=== PATIENT | female | born 1985 | race Caucasian/White ===

== ENCOUNTER 2023-08-02 16:46 | Emergency (ER) | payer MEDICAID ==
[~2023-08-02] VITALS: Ht 162.6 cm; Wt 65.3 kg
[2023-08-02 17:30] VITALS: BP_SYST 122; PULSE 77; RESP 18; TEMP 98.1; O2SAT 96
[2023-08-02] MEDS ORDERED: IBUP-1969 PO (19:19)
[2023-08-02] MEDS ORDERED: SOM350 PO (19:19)
== END 2023-08-02 19:34 | disposition home or self-care (01) ==
LOC: SED 16:46
DX: S16.1XXA Strain of muscle, fascia and tendon at neck level, initial encounter (principal); S39.012A Strain of muscle, fascia and tendon of lower back, initial encounter; V89.2XXA Person injured in unspecified motor-vehicle accident, traffic, initial encounter; Y93.89 Activity, other specified; Y92.89 Other specified places as the place of occurrence of the external cause; Y99.8 Other external cause status
CPT/HCPCS: 72040; 73030; 99284